=== PATIENT | male | born 1975 | race Caucasian/White ===

== ENCOUNTER 2016-12-16 15:26 | Emergency (ER) | payer OTHER ==
[~2016-12-16] VITALS: Ht 177.8 cm; Wt 65.9 kg
[2016-12-16 15:46] VITALS: BP 118/79; PULSE 65; RESP 20; O2SAT 99
[2016-12-16] MEDS ORDERED: HYDROcodone-APAP 5-325 mg Tablet PO ONE (16:00)
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
[2016-12-16] MEDS ORDERED: Lidocaine-Epi-Tetracaine Solution 3 mL Syringe TOPICAL ONE (16:15)
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
[2016-12-16 18:33] VITALS: BP 106/74; PULSE 61; RESP 20; O2SAT 98
[2016-12-16] MEDS ORDERED: SULF1TAB7 PO (18:49)
[2016-12-16] MEDS ORDERED: Bacitracin Ointment Packet TOPICAL ONE (18:50)
== END 2016-12-16 18:59 | disposition home or self-care (01) ==
LOC: SED 15:26
DX: S91.301A Unspecified open wound, right foot, initial encounter (principal); T25.221A Burn of second degree of right foot, initial encounter; T31.0 Burns involving less than 10% of body surface; W39.XXXA Discharge of firework, initial encounter; Y93.89 Activity, other specified; Y92.9 Unspecified place or not applicable; Y99.8 Other external cause status